=== PATIENT | female | born 1960 | race Caucasian/White ===

== ENCOUNTER → 2016-06-19 | Outpatient (CLI) | payer BC, OTHER ==
[~2016-06-19] MED LIST: AZIT250T PO; HYCUDL5 PO
--- NOTE | 2016-06-19 17:08 | MAMMOGRAPHY REPORT ---
BILATERAL DIGITAL SCREENING MAMMOGRAM WITH CAD: 06/19/2016 CLINICAL HISTORY: Patient presents for routine screening. S/P bilateral augmentation. TECHNIQUE: Bilateral CC and MLO views of the breasts with and without implant displacement views wer e obtained. Current study was also evaluated with a Computer Aided Detection (CAD) system. COMPARISON: Comparison is made to exams dated: 06/16/2015 mammogram, 02/01/2014 mammogram, 01/27/2013 mammogram, 01/22/2012 mammogram, 01/16/2011 mammogram, and 01/15/2010 mammogram - [facility]. BREAST COMPOSITION: The tissue of both breasts is heterogeneously dense, which may obscure small ma sses. FINDINGS: Bilateral subpectoral silicone implants are in place. The parenchymal pattern is similar to prior mammograms. No new suspicious mass, architectural distortion or cluster of microcalcificat ions is seen. IMPRESSION: ACR BI-RADS CATEGORY 1: NEGATIVE There is no mammographic evidence of malignancy. A 1 year screening mammogram is recommended. The p atient will receive written notification of the results. Approximately 10% of breast cancers are not detected with mammography. A negative mammographic repor t should not delay biopsy if a clinically suggestive mass is present. Shala Kahn M.D. ay/:06/19/2016 15:46:45 Procedure Manager: J Luis ANDERSON(Mo)(M), [facility] letter sent: Normal 1/2 BI-RADS Code: ACR BI-RADS Category 1: Negative
== END | disposition home or self-care (01) ==
LOC: C.MAMM 11:52
PROVIDERS: ATTEND Obstetrics & Gynecology
DX: Z12.31 Encounter for screening mammogram for malignant neoplasm of breast (principal); Z98.82 Breast implant status

== ENCOUNTER → 2016-06-19 | Outpatient (CLI) | payer BC, OTHER | END | disposition home or self-care (01) | LOC: C.PAPS 15:06 | PROVIDERS: ATTEND Obstetrics & Gynecology | DX: Z01.419 Encounter for gynecological examination (general) (routine) without abnormal findings (principal) ==

== ENCOUNTER → 2017-06-24 | Outpatient (CLI) | payer OTHER ==
--- NOTE | 2017-06-24 12:45 | MAMMOGRAPHY REPORT ---
BILATERAL DIGITAL SCREENING MAMMOGRAM TOMOSYNTHESIS WITH CAD: 06/24/2017 CLINICAL HISTORY: Patient presents for routine screening. S/P bilateral augmentation. TECHNIQUE: Bilateral CC and MLO views of the breasts with and without implant displacement views were obtained. Tomosynthesis was also performed on the implant displaced views. Current study was also evaluated with a Computer Aided Detection (CAD) system. COMPARISON: Comparison is made to exams dated: 06/19/2016 mammogram, 06/16/2015 mammogram, 02/01/2014 m ammogram, 01/27/2013 mammogram, 01/22/2012 mammogram, and 01/16/2011 mammogram - [facility]. BREAST COMPOSITION: The tissue of both breasts is heterogeneously dense, which may obscure small mas ses. FINDINGS: There is a focal area of architectural distortion in the right breast along the posterior nipple line on the implant displaced CC view (best seen on CC tomosynthesis slices 2122/38), for whi ch additional spot compression tomosynthesis views and targeted ultrasound are recommended. No other definite mass, area of distortion, asymmetry or suspicious calcifications identified bilater ally. Bilateral subpectoral silicone implants are stable comparing to prior exams, including a lobul ated contour of the superior aspect of the left silicone implant on the MLO view. IMPRESSION: ACR BI-RADS CATEGORY 0: INCOMPLETE EVALUATION: NEED ADDITIONAL IMAGING EVALUATION The area of architectural distortion in the right breast along the posterior nipple line on the impla nt displaced CC view needs additional imaging evaluation. The patient will be called to schedule an appointment. Approximately 10% of breast cancers are not detected with mammography. A negative mammographic report should not delay biopsy if a clinically suggestive mass is present. Shala Kahn M.D. ay/:06/24/2017 10:06:46 Transcription Typist: Jeannette ANDERSON(Mo)(M), [facility] letter sent: Addl Imaging 0 BI-RADS Code: ACR BI-RADS Category 0: Incomplete Evaluation: Need Additional Imaging Evaluation
== END | disposition home or self-care (01) ==
LOC: C.MAMM 08:17
PROVIDERS: ATTEND Obstetrics & Gynecology
DX: Z12.31 Encounter for screening mammogram for malignant neoplasm of breast (principal); Z98.82 Breast implant status; R92.8 Other abnormal and inconclusive findings on diagnostic imaging of breast

== ENCOUNTER → 2017-07-03 | Outpatient (CLI) | payer OTHER ==
--- NOTE | 2017-07-04 07:50 | MAMMOGRAPHY REPORT ---
UNILATERAL RIGHT DIGITAL DIAGNOSTIC MAMMOGRAM TOMOSYNTHESIS AND TARGETED RIGHT ULTRASOUND: 07/03/2017 CLINICAL HISTORY: Callback from screening mammogram for right breast architectural distortion. TECHNIQUE: Breast tomosynthesis in addition to standard 2D mammography was performed. Spot compress ion right CC and MLO tomosynthesis implant-displaced images were obtained. COMPARISON: Comparison is made to exams dated: 06/24/2017 mammogram, 06/19/2016 mammogram, 06/16/2015 ma mmogram, 02/01/2014 mammogram, 01/22/2012 mammogram, and 01/27/2013 mammogram - [facility]. BREAST COMPOSITION: The tissue of the right breast is heterogeneously dense, which may obscure small masses. FINDINGS: There is probable persistent architectural distortion seen within the right retroareolar/sl ightly medial breast on the CC tomosynthesis images (best seen on slice 20), possibly projecting in the slightly superior breast on the MLO tomosynthesis images (slice 18). Targeted ultrasound was performed of the right 12:00, subareolar, and 6:00 breast as well as the righ t slightly medial breast. No suspicious masses or other suspicious sonographic abnormalities are triston dent. No clear sonographic correlate for the distortion is seen. A small 3 x 2 mm anechoic benign c yst is seen within the right 3:00 breast, 4 cm from the nipple. IMPRESSION: ACR BI-RADS CATEGORY 4: SUSPICIOUS, TARGETED ULTRASOUND ACR BI-RADS CATEGORY 4: SUSPICIO US Probable persistent architectural distortion seen on the CC tomosynthesis images in the right retroar eolar/slightly medial breast, without a clear sonographic correlate evident. The finding is indeterm inate and tomosynthesis stereotactic biopsy is recommended for further evaluation. If the biopsy can not be performed due to nonvisualization or due to the patient's implants, then breast MRI is recomme nded. A phone call was made to the physician's office to confirm faxed results were received. The patient has been verbally notified of the results. She tentatively scheduled the biopsy before leaving the [facility]. Approximately 10% of breast cancers are not detected with mammography. A negative mammographic report should not delay biopsy if a clinically suggestive mass is present. Sondra Saldana M.D. /:07/03/2017 09:17:37 Greaser Helper: Jeannette Sterling, [facility] letter sent: Abnormal 4/5 BI-RADS Code: ACR BI-RADS Category 4: Suspicious Ultrasound BI-RADS: ACR BI-RADS Category 4: Suspici ous
== END | disposition home or self-care (01) ==
LOC: C.MAMM 08:43
PROVIDERS: ATTEND Obstetrics & Gynecology
DX: R92.2 Inconclusive mammogram (principal)

== ENCOUNTER → 2017-07-15 | Outpatient (CLI) | payer OTHER ==
--- NOTE | 2017-07-15 10:46 | Discharge Instructions ---
Discharge Instructions Procedure Procedure Date: July 15, 2017. Reason for visit: Right Distortion/Implants. Discharge Discharge Date: July 15, 2017. Discharge Diagnosis: post right breast stereotactic tomosynthesis guided biopsy Instructions Activity Recommendations: Additional Limitations (see below) Return to School/Work: no limitations Recommended Home Diet: No Limitations Provider Instructions: ACTIVITY RECOMMENDATIONS: * No lifting, pushing, pulling or exercising the affected side for three days. RETURN TO SCHOOL/WORK: * You may return to work/school after the procedure, but do not perform any strenuous activities for 24 to 48 hours. MEDICATIONS: * Tylenol (two 325 mg) every four to six hours if needed for mild pain (if not allergic to Tylenol). DIET: * Resume previous diet. SPECIAL CARE INSTRUCTIONS: * Keep biopsy site dry for 24 hours. May shower after 24 hours, but do not soak (bathe) incision. * May remove Tegaderm (plastic patch) tomorrow AFTER showering. * Leave the steri-strips on for one week. Allow the steri-strips to fall off by themselves. If not off after one week, you may remove them. You may place a Bandaid crosswise over the strips, if desired. * Apply ice 10 minutes on and 10 minutes off as needed. * Wear a bra at bedtime to sleep more comfortably for 2-3 days. * Your referring physician should have the results after approximately 5 to 7 business days. * Call for unusual bleeding, fever, drainage, etc or if you have any questions call [phone] during normal business hours or after hours call Dr Kahn, . FOLLOW UP VISIT: Follow-up with Referring Physician as scheduled. Allergies Coded Allergies: BEE STING (Verified Allergy, Severe, "HIVES INTERNALLY", 02/19/13) Penicillins (Unverified Allergy, Mild, RASH, 03/31/09) Latex (Verified Allergy, Unknown, ?, 02/19/13) Gina Messina Recommendations: Call your doctor if: * Temperature above 101 degrees * Pain not relieved by pain medicine ordered * There is increased drainage or redness from any incision * You have any unanswered questions or concerns. Your Doctors Instructions noted above were prepared by provider Shala Kahn. Patient Signature Section: Patient Instructions Signature Page Cindy Carter Patient (or Guardian) Signature/Date: I have read and understand the instructions given to me by my caregivers. Caregiver/RN/Doctor Signature/Date: The above-named patient and/or guardian has received patient instructions on this date. + Original Patient Signature Page (only) stays with chart. Please make copy for patient.
--- NOTE | 2017-07-15 13:16 | MAMMOGRAPHY REPORT ---
STEREOTACTIC GUIDED BIOPSY RIGHT BREAST: 07/15/2017 CLINICAL HISTORY: 57-year-old woman with a history of bilateral subpectoral silicone implants recentl y found to have a focal area of architectural distortion in the approximate 12:00 right breast on scr eening mammography, best seen on the right CC implant displaced view, presents for stereotactic tomos ynthesis guided biopsy. COMPARISON: Comparison is made to exams dated: 07/03/2017 ultrasound, 07/03/2017 mammogram, 06/24/2017 m ammogram, and 06/19/2016 mammogram - [facility]. PATIENT CONSENT: After explaining the risks, benefits and alternatives of the procedure to the patien t, informed consent was obtained both verbally and in writing. Specific risks include: Bleeding, inf ection, puncture of adjacent structure, pain, nontarget biopsy, sampling error, metal allergy and med ication reaction. PROCEDURE DESCRIPTION: A time-out was performed and the right breast was confirmed as the site of bio psy. The patient was placed prone on the stereotactic biopsy table and the breast was placed in CC fr om above compression. A tomosynthesis product tester view was obtained which redemonstrates the focal area of distortion in question and therefore it was targeted utilizing the coordinates obtained by the comput er. The skin was prepped with Betadine. 1% Lidocaine with and without epinipherine was administered as local anesthesia. A small skin incision was made. Through the incision, the needle was inserted t o the depth determined by the computer. 12 samples were obtained using a [employer] Eviva 9-gauge va cuum-assisted biopsy device. A metallic biopsy marker clip was placed at the site of the biopsy. Th ere was no immediate complication. Hemostasis was achieved after several minutes of manual compressio n. The samples were sent to pathology in an appropriately labeled container. Postprocedure CC and ML implant displaced tomosynthesis views of the right breast were obtained. Th ere is a new dumbbell-shaped biopsy marker clip and no significant hematoma in the 12:00 middle to po sterior right breast at the site of the biopsied focal area of distortion in question. IMPRESSION: STEREOTACTIC GUIDED BIOPSY Status post stereotactic tomosynthesis guided biopsy of a focal area of architectural distortion in t he 12:00 right breast, with biopsy marker clip placed at the site. The patient will receive notification of the biopsy results from her referring physician. Shala Kahn M.D. ay/:07/15/2017 11:11:17 Attending Technologist: Samia Davis RT, [facility] Private Detective: J Luis Douglas RT(R)(M), [facility]
--- NOTE | 2017-07-15 13:16 | MAMMOGRAPHY REPORT ---
UNILATERAL RIGHT DIGITAL DIAGNOSTIC MAMMOGRAM TOMOSYNTHESIS: 07/15/2017 CLINICAL HISTORY: 57-year-old woman presents for stereotactic guided biopsy of an area of architectur al distortion in the approximate 12:00 right breast. She has a history of bilateral subpectoral sili cone implants. Please refer to the report from right breast stereotactic guided biopsy performed at the same time fo r full detail. IMPRESSION: POST PROCEDURE IMAGING FOR MARKER PLACEMENT Please refer to the report from right breast stereotactic guided biopsy performed at the same time fo r full detail. Approximately 10% of breast cancers are not detected with mammography. A negative mammographic report should not delay biopsy if a clinically suggestive mass is present. Shala Kahn M.D. ay/:07/15/2017 10:55:10 Production Assistant: J Luis ANDERSON(Mo)(M), [facility] BI-RADS Code: Post Procedure Imaging For Marker Placement
== END | disposition home or self-care (01) ==
LOC: C.MAMM 09:30
PROVIDERS: ATTEND Obstetrics & Gynecology
DX: N60.41 Mammary duct ectasia of right breast (principal); R92.8 Other abnormal and inconclusive findings on diagnostic imaging of breast; Z98.82 Breast implant status